=== PATIENT | male | born 1980 | race Hispanic/Latino ===

== ENCOUNTER 2022-06-21 22:48 | Emergency (ER) | payer OTHER ==
[2022-06-21] MEDS ORDERED: IBUPROFEN 400 MG TAB ONE (23:37)
[2022-06-22] MEDS ORDERED: NA CHLORIDE 0.9% 1,000 ML ONE (01:19)
[2022-06-22] MEDS ORDERED: ACETAMINOPHEN 500 MG TAB ONE (01:19)
[2022-06-22 01:24] LABS: Urine Mucus Slight /HPF (None Seen); Urine RBC >50 /HPF (None Seen)
[2022-06-22 02:25] LABS: Absolute Lymphocytes (CBC) 1.6 K/uL (0.7-4.9); Hematocrit 36.6 % (39.6-49.0); Lymphocytes % 9.2 % (15.3-44.8); MCV 85.9 fL (80-100); MPV 7.6 fL (7.6-11.3); RBC Red Blood Cell Count 4.26 M/uL (4.33-5.43)
[2022-06-22 02:34] LABS: Albumin 3.3 g/dL (3.4-5.0); Bilirubin Total 0.9 mg/dL (0.2-1.0); Potassium 3.5 mmol/L (3.5-5.1); Protein, Total 7.3 g/dL (6.4-8.2)
--- NOTE | 2022-06-22 02:41 | EDPHYS ---
Physician Documentation [facility] Name: Kenzie Montenegro Age: 42 yrs Sex: Male : 1980 Arrival Date: 06/21/2022 Time: 22:54 Bed 9 Private MD: ED Physician Caleb Field HPI: 06/21 23:45 This 42 yrs old Male presents to ER via Ambulatory with complaints of cp Weakness, Headache, Fever, Pain All Over, Urinary Problem. 23:45 The patient complains of pain to the top of head and forehead. The patient describes cp the headache as aching. Onset: The symptoms/episode began/occurred this morning. 23:45 Associated signs and symptoms: Pertinent positives: fever, weakness, generalized pain cp and body aches. Severity of symptoms: in the emergency department the pain is unchanged, despite home interventions. Historical: - Allergies: 23:06 No Known Allergies; hb - Immunization history:: Adult Immunizations up to date. - Social history:: Smoking status: Patient denies any tobacco usage or history of. ROS: 23:50 Constitutional: Positive for body aches, chills, fever, Negative for poor PO intake. cp 23:50 Eyes: Negative for injury, pain, redness, and discharge. cp 23:50 ENT: Positive for sore throat, Negative for drainage from ear(s), ear pain, difficulty swallowing, difficulty handling secretions. 23:50 Cardiovascular: Negative for chest pain. 23:50 Respiratory: Negative for cough, shortness of breath, wheezing. 23:50 Abdomen/GI: Negative for abdominal pain, vomiting, diarrhea, constipation. 23:50 Back: Positive for pain at rest, pain with movement, of the low back area. 23:50 Skin: Negative for rash. 23:50 Neuro: Positive for headache, weakness, Negative for altered mental status, dizziness. 23:50 All other systems are negative. Exam: 23:55 Head/Face: Normocephalic, atraumatic. cp 23:55 Constitutional: The patient appears in no acute distress, alert, awake, non-diaphoretic, non-toxic, well developed, well nourished. 23:55 Eyes: Periorbital structures: appear normal, Conjunctiva: normal, no exudate, no cp injection, Sclera: no appreciated abnormality, Lids and lashes: appear normal, bilaterally. 23:55 ENT: External ear(s): are unremarkable, Ear canal(s): are normal, clear, TM's: bulging, is not appreciated, bilaterally, dullness, bilaterally, erythema, is not appreciated, bilaterally, Nose: is normal, Mouth: Lips: moist, Oral mucosa: moist, Posterior pharynx: Airway: no evidence of obstruction, patent, erythema, is not appreciated, exudate, is not appreciated. 23:55 Neck: ROM/movement: is normal, is supple, without pain, no range of motions limitations, no meningismus, Lymph nodes: no appreciated lymphadenopathy. 23:55 Chest/axilla: Inspection: normal. 23:55 Cardiovascular: Rate: normal, Rhythm: regular, Edema: is not appreciated, JVD: is not appreciated. 23:55 Respiratory: the patient does not display signs of respiratory distress, Respirations: normal, no use of accessory muscles, no retractions, labored breathing, is not present, Breath sounds: are clear throughout, no decreased breath sounds, no stridor, no wheezing. 23:55 Abdomen/GI: Inspection: abdomen appears normal, Bowel sounds: active, all quadrants, Palpation: abdomen is soft and non-tender, in all quadrants. 23:55 Back: pain, that is very mild, of the low back area, ROM is normal, CVA tenderness, is absent. 23:55 Skin: cellulitis, is not appreciated, no rash present. 23:55 Neuro: Orientation: to person, place \\T\\ time. Mentation: is normal, Motor: moves all fours, strength is normal, Sensation: is normal. Vital Signs: 23:04 BP 130 / 75; Pulse 99; Resp 18; Temp 101.5(O); Pulse Ox 96% on R/A; Weight 127.01 kg; hb Height 5 ft. 9 in. (175.26 cm); Pain 8/10; 06/22 00:52 BP 108 / 58; Temp 101.5(O); ke1 02:17 Temp 99.1(O); ke1 06/21 23:04 Body Mass Index 41.35 (127.01 kg, 175.26 cm) hb MDM: 06/21 23:08 Patient medically screened. cp 06/22 02:40 Data reviewed: vital signs, nurses notes, lab test result(s). cp 02:40 Counseling: I had a detailed discussion with the patient and/or guardian regarding: the cp historical points, exam findings, and any diagnostic results supporting the discharge/admit diagnosis, lab results, the need for outpatient follow up, a family practitioner, to return to the emergency department if symptoms worsen or persist or if there are any questions or concerns that arise at home. Response to treatment: the patient's symptoms have markedly improved after treatment. ED course: VSS. Patient appears non-toxic and reports symptoms have improved with IV fluids and meds. Will discharge to home for continued monitoring. 06/21 23:27 Order name: Influenza Screen (a \\T\\ B); Complete Time: 00:54 cp 06/21 23:27 Order name: Strep; Complete Time: 00:54 06/21 23:27 Order name: COVID-19 SARS RT PCR (Document "Date of Onset" if Symptomatic); Complete cp Time: 00:54 06/21 23:57 Order name: Urine Microscopic Only; Complete Time: 01:58 cp 06/22 00:44 Order name: Throat Culture EDNV 06/22 00:46 Order name: CBC with Diff; Complete Time: 02:36 cp 06/22 02:37 Interpretation: Normal except: WBC 17.60; RBC 4.26; HGB 12.7; HCT 36.6; REYMUNDO% 83.3; LYM% cp 9.2; NEUT A 14.7. 06/22 00:46 Order name: CMP; Complete Time: 02:36 cp 06/22 02:37 Interpretation: NA 134; AST 13; CA 8.4; ALB 3.3; GLOB 4.0; Reviewed. 06/22 00:46 Order name: Lipase; Complete Time: 02:36 cp 06/22 01:27 Order name: Urine Culture EDNV 06/22 00:46 Order name: IV Saline Lock; Complete Time: 01:17 cp 06/22 00:46 Order name: Labs collected and sent; Complete Time: 01:39 cp Administered Medications: 06/21 23:44 Drug: Ibuprofen 800 mg Route: PO; ke1 06/22 01:15 Drug: Tylenol 1000 mg Route: PO; ke1 01:39 Drug: NS 0.9% 1000 ml Route: IV; Rate: 1 bolus; Site: right antecubital; ke1 02:48 CANCELLED (errorr): Albuterol 2.5 mg Inhalation once ke1 03:10 Drug: Rocephin - (cefTRIAXone) 2 grams Route: IVPB; Infused Over: 30 mins; Site: right ke1 forearm; 03:10 Drug: Cipro (ciprofloxacin) 500 mg Route: PO; ke1 Disposition Summary: 06/22/22 02:41 Discharge Ordered Location: Home cp Problem: new cp Symptoms: have improved cp Condition: Stable cp Diagnosis - UTI/ Urinary tract infection, site not specified cp Followup: cp - With: Emergency Department - When: As needed - Reason: Worsening of condition Discharge Instructions: - Discharge Summary Sheet cp - Urinary Tract Infection, Adult cp Forms: - Medication Reconciliation Form cp - Thank You Letter cp - Antibiotic Education cp - Prescription Opioid Use cp - Work release form ke1 Prescriptions: - Ibuprofen 800 mg Oral Tablet - take 1 tablet by ORAL route every 8 hours As needed take with food; 30 tablet; cp Refills: 0, Product Selection Permitted - Cipro 500 mg Oral Tablet - take 1 tablet by ORAL route every 12 hours for 10 days; 20 tablet; Refills: 0, cp Product Selection Permitted Signatures: Dispatcher [employer] EDMS Akash Keenan PA PA cp Becky Mcclain RN RN Oli Kebede RN RN ke1 Corrections: (The following items were deleted from the chart) 02:37 02:36 NA 134; Reviewed. cp cp 02:48 02:47 Albuterol 2.5 mg Inhalation once ordered. ke1 ke1
--- NOTE | 2022-06-22 02:41 | ER ---
Nurse's Notes [facility] Name: Kenzie Montenegro Age: 42 yrs Sex: Male : 1980 Arrival Date: 06/21/2022 Time: 22:54 Bed 9 Private MD: Diagnosis: UTI/ Urinary tract infection, site not specified Presentation: 06/21 23:04 Chief complaint: Generalized weakness, chills, headache, body aches, and fever since hb this morning. TMAX 102.7. Coronavirus screen: At this time, the client does not indicate any symptoms associated with coronavirus-19. Ebola Screen: No symptoms or risks identified at this time. Initial Sepsis Screen: Does the patient meet any 2 criteria? No. Patient's initial sepsis screen is negative. Does the patient have a suspected source of infection? No. Patient's initial sepsis screen is negative. Risk Assessment: Do you want to hurt yourself or someone else? Patient reports no desire to harm self or others. Onset of symptoms was June 21, 2022. 23:04 Method Of Arrival: Ambulatory hb 23:04 Acuity: GONZALO 4 hb Triage Assessment: 23:06 General: Appears in no apparent distress. ill, Behavior is calm, cooperative. Pain: hb Pain currently is 8 out of 10 on a pain scale. Neuro: Level of Consciousness is awake, alert, obeys commands, Oriented to person, place, time, situation. Cardiovascular: Patient's skin is warm and dry. Respiratory: Respiratory effort is even, unlabored, Respiratory pattern is regular, symmetrical. Historical: - Allergies: 23:06 No Known Allergies; hb - Immunization history:: Adult Immunizations up to date. - Social history:: Smoking status: Patient denies any tobacco usage or history of. Screenin:07 Abuse screen: Denies threats or abuse. Denies injuries from another. Nutritional hb screening: No deficits noted. Tuberculosis screening: No symptoms or risk factors identified. Fall Risk None identified. Assessment: 23:43 Pain: Complains of pain in General body Pain currently is 5 out of 10 on a pain scale. ke1 Neuro: Level of Consciousness is awake, alert, Oriented to person, place, time, situation. 06/22 03:19 Reassessment: Discharge delayed by Rocephin administration. ke1 Vital Signs: 06/21 23:04 BP 130 / 75; Pulse 99; Resp 18; Temp 101.5(O); Pulse Ox 96% on R/A; Weight 127.01 kg; hb Height 5 ft. 9 in. (175.26 cm); Pain 8/10; 06/22 00:52 BP 108 / 58; Temp 101.5(O); ke1 02:17 Temp 99.1(O); ke1 06/21 23:04 Body Mass Index 41.35 (127.01 kg, 175.26 cm) hb ED Course: 06/21 22:54 Patient arrived in ED. ja2 23:01 Akash Keenan PA is PHCP. cp 23:01 Caleb Field MD is Attending Physician. cp 23:06 Triage completed. hb 23:06 Arm band placed on. hb 23:07 Patient has correct armband on for positive identification. hb 23:34 Oli Kebede RN is Primary Nurse. ke1 23:38 Strep Sent. mm9 23:38 Influenza Screen (a \\T\\ B) Sent. mm9 23:38 COVID-19 SARS RT PCR (Document "Date of Onset" if Symptomatic) Sent. mm9 23:38 COVID swab sent to lab. Flu and/or RSV swab sent to lab. Strep swab sent to lab. mm9 06/22 00:55 Urine Microscopic Only Sent. mm9 01:17 Inserted saline lock: 20 gauge in right antecubital area, using aseptic technique. ke1 Administered Medications: 06/21 23:44 Drug: Ibuprofen 800 mg Route: PO; ke1 06/22 01:15 Drug: Tylenol 1000 mg Route: PO; ke1 01:39 Drug: NS 0.9% 1000 ml Route: IV; Rate: 1 bolus; Site: right antecubital; ke1 02:48 CANCELLED (errorr): Albuterol 2.5 mg Inhalation once ke1 03:10 Drug: Rocephin - (cefTRIAXone) 2 grams Route: IVPB; Infused Over: 30 mins; Site: right ke1 forearm; 03:10 Drug: Cipro (ciprofloxacin) 500 mg Route: PO; ke1 Outcome: 02:41 Discharge ordered by . cp 03:42 Patient left the ED. mm9 Signatures: Akash Keenan PA PA cp Baxter, Heather, RN Poonam Chavez Kouassi, RN RN ke1 Janey Garcia mm9 Corrections: (The following items were deleted from the chart) 00:57 00:52 Temp 101.5F Oral; ke1 ke1
[2022-06-22] MEDS ORDERED: CIPROFLOXACIN HCL 500 MG TAB ONE (02:56)
[2022-06-22] MEDS ORDERED: CEFTRIAXONE 2000 MG/VIAL ONE (02:56)
[2022-06-22] MEDS ORDERED: NA CHLORIDE 0.9% 100 ML IV ONE (02:57)
[2022-06-22 04:40] VITALS: O2SAT 96
[2022-06-22 04:41] VITALS: BP 108/58
[2022-06-22 04:42] VITALS: TEMP 99.1
== END 2022-06-22 03:42 | disposition home or self-care (01) ==
LOC: ER 22:48
DX: N39.0 Urinary tract infection, site not specified (principal); Z20.822 Contact with and (suspected) exposure to COVID-19
CPT/HCPCS: 87070; 87088; 85025; 87086; 36415; 87081; 81015; 83690; 80053; 87804 ×2; 96374; 99283; U0003; J7030; J0696

== ENCOUNTER 2022-06-23 08:56 | Emergency (ER) | payer OTHER ==
--- NOTE | 2022-06-23 09:48 | ER ---
Nurse's Notes [facility] Name: Kenzie Montenegro Age: 42 yrs Sex: Male : 1980 Arrival Date: 06/23/2022 Time: 09:00 Bed 11 Private MD: Diagnosis: Fever presenting with conditions classified elsewhere Presentation: 06/23 09:15 Chief complaint: Patient states: was here Wednesday was dx with urinary infection (CIPRO); 5 was given prescriptions and didn't get them filled until yesterday night and took antibiotics at 6:30 pm and then last night was having chills and getting hot so im back ... and i was released to go back Wednesday and the way im feeling, i cant go out there ....Pt has not taken any ibuprofen or tylenol this morning. Coronavirus screen: Vaccine status: Patient reports receiving the 2nd dose of the covid vaccine. Client denies travel out of the [place] in the last 14 days. Ebola Screen: Patient negative for fever greater than or equal to 101.5 degrees Fahrenheit, and additional compatible Ebola Virus Disease symptoms. Initial Sepsis Screen: Does the patient meet any 2 criteria? Yes Does the patient have a suspected source of infection? No. Patient's initial sepsis screen is negative. Risk Assessment: Do you want to hurt yourself or someone else? Patient reports no desire to harm self or others. Onset of symptoms was June 2022. 09:15 Method Of Arrival: Ambulatory [facility] 09:15 Acuity: GONZALO 3 [facility] Triage Assessment: 09:22 General: Appears in no apparent distress. comfortable, obese, Behavior is calm, [facility] cooperative, appropriate for age. Pain: Denies pain. Historical: - Allergies: 09:22 No Known Allergies; [facility] - Home Meds: :22 None [Active]; [facility] - Immunization history:: Adult Immunizations up to date. - Social history:: Smoking status: Patient denies any tobacco usage or history of. Vital Signs: 09:15 BP 133 / 77; Pulse 88; Resp 18; Temp 100.8; Pulse Ox 99% ; Weight 127.01 kg; Height 5 [facility] ft. 9 in. (175.26 cm); 09:15 Body Mass Index 41.35 (127.01 kg, 175.26 cm) [facility] ED Course: 09:00 Patient arrived in ED. am2 09:08 Sydney Logan [facility]-C [facility] snw 09:08 Colton Obrien MD is Attending Physician. snw 09:22 Triage completed. jh5 09:22 Arm band placed on right wrist. jh5 09:47 Anny Blake, RN is Primary Nurse. iw Administered Medications: 10:22 Drug: Motrin (ibuprofen) 600 mg Route: PO; iw 10:45 Follow up: Response: No adverse reaction iw 10:22 Drug: Tylenol 1000 mg Route: PO; iw 10:45 Follow up: Response: No adverse reaction iw 10:40 Drug: Flomax (tamsulosin) 0.4 mg Route: PO; iw 10:50 Follow up: Response: No adverse reaction iw Outcome: :47 Discharge ordered by . snw 10:41 Patient left the ED. iw Signatures: Sydney Logan FNP-C VETERINARY NURSE-Csnw Anny Blake, RN RN iw Mariely Vera 2 Poonam Machado, RN RN [facility]
--- NOTE | 2022-06-23 09:48 | EDPHYS ---
Physician Documentation [facility] Name: Kenzie Montenegro Age: 42 yrs Sex: Male : 1980 Arrival Date: 06/23/2022 Time: 09:00 Bed 11 Private MD: ED Physician Colton Obrien HPI: 06/23 09:46 This 42 yrs old Male presents to ER via Ambulatory with complaints of Fever, snw chills. 09:46 The patient reports fever, that was measured at 101 degrees Fahrenheit. Onset: The snw symptoms/episode began/occurred 3 day(s) ago, and became persistent. Modifying factors: dx with UTI, delayed getting abx filled. Severity of symptoms: At their worst the symptoms were moderate. It is unknown whether or not the patient has had similar symptoms in the past. The patient has been recently seen at the [facility] Department, this week, for similar complaints was given a prescription for antibiotics, was given a prescription for pain medications. Historical: - Allergies: :22 No Known Allergies; [facility] - Home Meds: :22 None [Active]; [facility] - Immunization history:: Adult Immunizations up to date. - Social history:: Smoking status: Patient denies any tobacco usage or history of. ROS: 09:45 Eyes: Negative for injury, pain, redness, and discharge, ENT: Negative for injury, snw pain, and discharge, Neck: Negative for injury, pain, and swelling, Cardiovascular: Negative for chest pain, palpitations, and edema, Respiratory: Negative for shortness of breath, cough, wheezing, and pleuritic chest pain, Abdomen/GI: Negative for abdominal pain, nausea, vomiting, diarrhea, and constipation, Back: Negative for injury and pain, : Negative for injury, bleeding, discharge, and swelling, MS/Extremity: Negative for injury and deformity, Skin: Negative for injury, rash, and discoloration, Neuro: Negative for headache, weakness, numbness, tingling, and seizure, Psych: Negative for depression, anxiety, suicide ideation, homicidal ideation, and hallucinations. 09:45 Constitutional: Positive for body aches, fever, malaise. Exam: 09:45 Constitutional: This is a well developed, well nourished patient who is awake, alert, snw and in no acute distress. Head/Face: Normocephalic, atraumatic. Eyes: Pupils equal round and reactive to light, extra-ocular motions intact. Lids and lashes normal. Conjunctiva and sclera are non-icteric and not injected. Cornea within normal limits. Periorbital areas with no swelling, redness, or edema. ENT: Nares patent. No nasal discharge, no septal abnormalities noted. Tympanic membranes are normal and external auditory canals are clear. Oropharynx with no redness, swelling, or masses, exudates, or evidence of obstruction, uvula midline. Mucous membranes moist. Neck: Trachea midline, no thyromegaly or masses palpated, and no cervical lymphadenopathy. Supple, full range of motion without nuchal rigidity, or vertebral point tenderness. No Meningismus. Chest/axilla: Normal chest wall appearance and motion. Nontender with no deformity. No lesions are appreciated. Cardiovascular: Regular rate and rhythm with a normal S1 and S2. No gallops, murmurs, or rubs. Normal PMI, no JVD. No pulse deficits. Respiratory: Lungs have equal breath sounds bilaterally, clear to auscultation and percussion. No rales, rhonchi or wheezes noted. No increased work of breathing, no retractions or nasal flaring. Abdomen/GI: Soft, non-tender, with normal bowel sounds. No distension or tympany. No guarding or rebound. No evidence of tenderness throughout. Back: No spinal tenderness. No costovertebral tenderness. Full range of motion. Skin: Warm, dry with normal turgor. Normal color with no rashes, no lesions, and no evidence of cellulitis. MS/ Extremity: Pulses equal, no cyanosis. Neurovascular intact. Full, normal range of motion. Neuro: Awake and alert, GCS 15, oriented to person, place, time, and situation. Cranial nerves II-XII grossly intact. Motor strength 5/5 in all extremities. Sensory grossly intact. Cerebellar exam normal. Normal gait. Psych: Awake, alert, with orientation to person, place and time. Behavior, mood, and affect are within normal limits. Vital Signs: 09:15 BP 133 / 77; Pulse 88; Resp 18; Temp 100.8; Pulse Ox 99% ; Weight 127.01 kg; Height 5 jh5 ft. 9 in. (175.26 cm); 09:15 Body Mass Index 41.35 (127.01 kg, 175.26 cm) 5 MDM: 09:09 Patient medically screened. snw 09:49 Data reviewed: vital signs, nurses notes, old medical records. Data interpreted: Pulse snw oximetry: on room air is 99 %. Interpretation: normal. Response to treatment: the patient's symptoms have mildly improved after treatment. Special discussion: Based on the history and exam findings, there is no indication for further emergent testing or inpatient evaluation. I discussed with the patient/guardian the need to see the primary care provider for further evaluation of the symptoms. Administered Medications: 10: Drug: Motrin (ibuprofen) 600 mg Route: PO; iw 10:45 Follow up: Response: No adverse reaction iw 10:22 Drug: Tylenol 1000 mg Route: PO; iw 10:45 Follow up: Response: No adverse reaction iw 10:40 Drug: Flomax (tamsulosin) 0.4 mg Route: PO; iw 10:50 Follow up: Response: No adverse reaction iw Disposition: 17:29 Co-signature as Attending Physician, Colton Obrien MD. rn Disposition Summary: 06/23/22 09:47 Discharge Ordered Location: Home snw Condition: Stable snw Diagnosis - Fever presenting with conditions classified elsewhere snw Followup: snw - With: Emergency Department - When: As needed - Reason: Worsening of condition Followup: snw - With: Private Physician - When: 2 - 3 days - Reason: Recheck today's complaints, Continuance of care, Re-evaluation by your physician Discharge Instructions: - Discharge Summary Sheet snw - Fever, Adult snw - Urinary Tract Infection, Adult, [id number] snw Forms: - Medication Reconciliation Form snw - Work release form snw - Thank You Letter snw - Antibiotic Education snw - Prescription Opioid Use snw Prescriptions: - Flomax 0.4 mg Oral capsule - take 1 capsule by ORAL route once daily 1/2 hour following the same meal each snw day; 10 capsule; Refills: 0, Product Selection Permitted Signatures: Sydney Logan FNP-C ASSISTANT COMMUNITY MANAGER-Csnw Anny Blake, RN ELLIOT iw Colton Obrien MD MD rn Rees, Jessica, RN RN jh5
[2022-06-23] MEDS ORDERED: IBUPROFEN 200 MG TAB PO ONE (10:17)
[2022-06-23] MEDS ORDERED: ACETAMINOPHEN 500 MG TAB ONE (10:17)
[2022-06-23] MEDS ORDERED: TAMSULOSIN 0.4 MG SR CAP ONE (10:32)
[2022-06-23 11:12] VITALS: BP 133/77; TEMP 100.8; O2SAT 99
== END 2022-06-23 10:41 | disposition home or self-care (01) ==
LOC: ER 08:56
DX: R50.9 Fever, unspecified (principal)
CPT/HCPCS: 99282

== ENCOUNTER 2022-06-26 20:59 | Emergency (ER) | payer OTHER ==
[2022-06-26 22:56] LABS: Urine Blood 3+ (Negative); Urine Glucose Negative (Negative); Urine Protein 1+ (Negative); Urine Specific Gravity >=1.030 (1.005-1.030); Urine pH 5.5 (5.0-7.0)
--- NOTE | 2022-06-26 23:18 | RAD REPORT ---
[facility] DES[facility] - 06/26/2022 11:02 pm CLINICAL HISTORY: low back pain, right testicle pain COMPARISON: No comparisons TECHNIQUE: CT of the abdomen and pelvis was performed. All CT scans are performed using dose optimization technique as appropriate and may include automated exposure control or mA/KV adjustment according to patient size. FINDINGS: Lower chest: No acute abnormality. Liver: Hepatic steatosis. Biliary: Cholecystectomy. Stomach: No significant focal abnormality. Duodenum: No significant focal abnormality. Pancreas: No significant abnormality. Spleen: No significant abnormality. Adrenal: No suspicious lesions. Kidney/ureter: No hydronephrosis. No renal calculi. Retroperitoneum: No retroperitoneal adenopathy. Vascular: No aneurysm. Bowel: No significant focal abnormality. Diverticulosis without diverticulitis. Normal appendix. Peritoneum: No ascites or free air. Bladder: Mild circumferential bladder wall thickening. Reproductive: No adnexal masses. Bones: No acute fracture. Other: n/a IMPRESSION: No acute intra-abdominal or pelvic finding. No urinary tract calculi. Normal appendix.
[2022-06-27] MEDS ORDERED: KETOROLAC 30 MG/ML INJ ONE (00:44)
--- NOTE | 2022-06-27 01:06 | EDPHYS ---
Physician Documentation [facility] Name: Kenzie Montenegro Age: 42 yrs Sex: Male : 1980 Arrival Date: 06/26/2022 Time: 21:01 Bed 20 Private MD: ED Physician Akash Birch HPI: 06/26 22:35 This 42 yrs old Male presents to ER via Ambulatory with complaints of Groin cp Pain. 22:35 The patient presents with swelling, of the right testicle, tenderness, that is cp moderate, of the right testicle, urinary symptoms, hematuria. 22:35 Onset: The symptoms/episode began/occurred 3 day(s) ago. Associated signs and symptoms: cp Pertinent positives: low back pain, Pertinent negatives: abdominal pain, constipation, diarrhea, fever, vomiting. Severity of symptoms: in the emergency department the symptoms are unchanged, despite home interventions. Patient currently taking prescribed Ciprofloxacin for uti after being seen here on 06-21-2022 for fever, body aches. Historical: - Allergies: 21:12 No Known Allergies; hb - Immunization history:: Adult Immunizations up to date. - Social history:: Smoking status: Patient denies any tobacco usage or history of. ROS: 22:40 Constitutional: Negative for body aches, chills, fever, poor PO intake. cp 22:40 Eyes: Negative for injury, pain, redness, and discharge. cp 22:40 ENT: Negative for drainage from ear(s), ear pain, sore throat, difficulty swallowing, difficulty handling secretions. 22:40 Cardiovascular: Negative for chest pain, edema, palpitations. 22:40 Respiratory: Negative for cough, shortness of breath, wheezing. 22:40 Abdomen/GI: Negative for abdominal pain, nausea, vomiting, and diarrhea. 22:40 Back: Positive for of the low back area, pain. 22:40 : Positive for hematuria, testicular pain of the right testicle, testicular swelling. 22:40 Skin: Negative for rash. 22:40 All other systems are negative. Exam: 22:45 Constitutional: The patient appears in no acute distress, alert, awake, non-toxic, well cp developed, well nourished. 22:45 Head/Face: Normocephalic, atraumatic. cp 22:45 Eyes: Periorbital structures: appear normal, Conjunctiva: normal, no exudate, no injection, Sclera: no appreciated abnormality, Lids and lashes: appear normal, bilaterally. 22:45 ENT: External ear(s): are unremarkable, Nose: is normal, Mouth: Lips: moist, Oral mucosa: moist, Posterior pharynx: Airway: no evidence of obstruction, patent. 22:45 Chest/axilla: Inspection: normal. 22:45 Cardiovascular: Rate: normal. 22:45 Respiratory: the patient does not display signs of respiratory distress, Respirations: normal, no use of accessory muscles, no retractions, labored breathing, is not present, Breath sounds: are clear throughout, no decreased breath sounds. 22:45 Abdomen/GI: Inspection: obese Bowel sounds: active, all quadrants, Palpation: abdomen is soft and non-tender, in all quadrants. 22:45 Back: pain, that is very mild, of the low back area, ROM is normal, CVA tenderness, is absent. 22:45 : Male external genitalia: swelling, of the right testicle is noted, of the epididymis area, that is moderate, tenderness, of the right testicle is noted, of the epididymis area, that is moderate. 22:45 Skin: cellulitis, is not appreciated, no rash present. Vital Signs: 21:09 BP 154 / 89; Pulse 60; Resp 18; Temp 97.1; Pulse Ox 100% on R/A; Pain 6/10; hb 06/27 00:33 BP 138 / 93; Pulse 59; Resp 19 S; Pulse Ox 100% on R/A; ha1 MDM: 06/26 21:13 Patient medically screened. aye 06/27 00:00 Differential diagnosis: appendicitis, UTI, urinary retention, prostatitis, urethritis, cp epididymitis, orchitis. 01:05 Data reviewed: vital signs, nurses notes, lab test result(s), radiologic studies, CT cp scan, ultrasound. 01:05 Counseling: I had a detailed discussion with the patient and/or guardian regarding: the cp historical points, exam findings, and any diagnostic results supporting the discharge/admit diagnosis, lab results, radiology results, the need for outpatient follow up, a urologist, to return to the emergency department if symptoms worsen or persist or if there are any questions or concerns that arise at home. 01:05 Response to treatment: the patient's symptoms have mildly improved after treatment, and cp as a result, I will discharge patient. 06/26 22:56 Order name: Urine Dipstick-Ancillary; Complete Time: 00:22 EDVT 06/27 00:22 Interpretation: Normal except: UBLD 3+; UPROT 1+. cp 06/26 22:32 Order name: US Scrotum Testicles cp 06/26 22:32 Order name: Urine Dipstick-Ancillary (obtain specimen); Complete Time: 23:23 cp 06/26 22:35 Order name: CT Stone Protocol; Complete Time: 00:22 cp Administered Medications: 01:01 Drug: Ketorolac 30 mg Route: IVP; Site: right antecubital; ha1 01:23 Follow up: Response: No adverse reaction ha1 Disposition Summary: 06/27/22 01:05 Discharge Ordered Location: Home cp Problem: an ongoing problem cp Symptoms: have improved cp Condition: Stable cp Diagnosis - Epididymitis cp Followup: cp - With: Christian Roman MD - When: 2 - 3 days - Reason: Recheck today's complaints Discharge Instructions: - Discharge Summary Sheet cp - Epididymitis cp - Testicular Self-Exam cp Forms: - Medication Reconciliation Form cp - Thank You Letter cp - Antibiotic Education cp - Prescription Opioid Use cp Prescriptions: - Diclofenac Sodium 75 mg Oral Tablet Sustained Release - take 1 tablet by ORAL route 2 times per day; 30 tablet; Refills: 0, Product cp Selection Permitted Addendum: 07/02/2022 09:53 Co-signature as Attending Physician, Akash Birch MD I agree with the assessment and [facility] plan of care. Signatures: Dispatcher [employer] [facility] Akash Birch MD MD cha Page, Corey, PA PA cp Becky Mcclain RN RN Katharina Guevara RN RN ha1 Corrections: (The following items were deleted from the chart) 06/28 01:13 06/26 22:35 Patient currently taking prescribed Ciprofloxacin for uti. cp cp
--- NOTE | 2022-06-27 01:06 | ER ---
Nurse's Notes [facility] Name: Kenzie Montenegro Age: 42 yrs Sex: Male : 1980 Arrival Date: 06/26/2022 Time: 21:01 Bed 20 Private MD: Diagnosis: Epididymitis Presentation: 06/26 21:09 Chief complaint: Chief complaint: Right testicular pain and blood in urine x 3 days. On Cipro for UTI. Coronavirus screen: At this time, the client does not indicate any symptoms associated with coronavirus-19. Ebola Screen: No symptoms or risks identified at this time. Initial Sepsis Screen: Does the patient meet any 2 criteria? No. Patient's initial sepsis screen is negative. Does the patient have a suspected source of infection? No. Patient's initial sepsis screen is negative. Risk Assessment: Do you want to hurt yourself or someone else? Patient reports no desire to harm self or others. Onset of symptoms was June 26, 2022. 21:09 Acuity: GONZALO 3 21:09 Method Of Arrival: Ambulatory Triage Assessment: 06/27 01:23 General: Appears. ha1 Historical: - Allergies: 06/26 21:12 No Known Allergies; hb - Immunization history:: Adult Immunizations up to date. - Social history:: Smoking status: Patient denies any tobacco usage or history of. Screenin/12 00:35 Abuse screen: Denies threats or abuse. Denies injuries from another. Nutritional ha1 screening: No deficits noted. Tuberculosis screening: No symptoms or risk factors identified. Fall Risk None identified. Assessment: 00:33 Pain: Denies pain. Neuro: Level of Consciousness is awake, alert, obeys commands, ha1 Oriented to person, place, time, situation. Cardiovascular: Patient's skin is warm and dry. Respiratory: Airway is patent Trachea midline Respiratory effort is even, unlabored, Respiratory pattern is regular, symmetrical. GI: No signs and/or symptoms were reported involving the gastrointestinal system. Abdomen is non-distended, obese. : Reports blood in urine. EENT: No deficits noted. No signs and/or symptoms were reported regarding the EENT system. Derm: Skin is pink, warm \T\ dry. Musculoskeletal: Circulation, motion, and sensation intact. Range of motion: intact in all extremities. 01:02 Reassessment: Patient and/or family updated on plan of care and expected duration. Pain ha1 level reassessed. Patient is alert, oriented x 3, equal unlabored respirations, skin warm/dry/pink. Vital Signs: 06/26 21:09 BP 154 / 89; Pulse 60; Resp 18; Temp 97.1; Pulse Ox 100% on R/A; Pain 6/10; hb 11 00:33 BP 138 / 93; Pulse 59; Resp 19 S; Pulse Ox 100% on R/A; ha1 ED Course: 06/26 21:01 Patient arrived in ED. bp1 21:09 Akash Keenan PA is PHCP. cp 21:09 Akash Birch MD is Attending Physician. cp 21:11 Triage completed. hb 21:12 Arm band placed on. hb 23:04 CT Stone Protocol In Process Unspecified. EDMS 23:24 Urine collected: clean catch specimen, cloudy. mm9 06/27 00:33 Katharina Guevara, RN is Primary Nurse. ha1 00:33 No provider procedures requiring assistance completed. Inserted saline lock: 20 gauge ha1 in right antecubital area, using aseptic technique. 00:35 Patient has correct armband on for positive identification. Placed in gown. Bed in low ha1 position. Call light in reach. Side rails up X 1. 01:00 US Scrotum Testicles In Process Unspecified. EDMS 01:04 Christian Roman MD is Referral Physician. cp 01:25 IV discontinued, intact, bleeding controlled, No redness/swelling at site. Pressure ha1 dressing applied. Administered Medications: 01:01 Drug: Ketorolac 30 mg Route: IVP; Site: right antecubital; ha1 01:23 Follow up: Response: No adverse reaction ha1 Medication: 01:24 VIS not applicable for this client. ha1 Outcome: 01:05 Discharge ordered by . cp 01:24 Discharged to home ambulatory. ha1 01:24 Condition: stable 01:24 Discharge instructions given to patient, Instructed on discharge instructions, follow up and referral plans. medication usage, Demonstrated understanding of instructions, follow-up care, medications. 01:25 Patient left the ED. ha1 Signatures: Dispatcher [employer] [facility] Akash Keenan PA PA cp Baxter, Heather, RN RN Maxine Cordova Heidy, ELLIOT RN ha1 Jose, Janey mm9
[2022-06-27 02:50] VITALS: TEMP 97.1; O2SAT 100
[2022-06-27 02:55] VITALS: BP 138/93
--- NOTE | 2022-06-29 12:23 | RAD REPORT ---
EXAM DESCRIPTION: US - Scrotum Testicles - 06/27/2022 12:58 am CLINICAL HISTORY 42 years, Male, right testicle pain COMPARISON: None. FINDINGS: Multiple grayscale images of the testicles were performed. Color Doppler imaging was used to assess vascular flow. The right testicle measures 5.4 x 3.1 x 3.5 cm, the right epididymis measured 0.6 x 1 cm. There is a epididymal head cyst measuring 0.4 x 0.4 cm. There is small amount of the hydrocele. There is a epidi dymal tail demonstrate heterogeneous appearance with focal area of hypoechoic highly suggestive of ri ght epididymitis of the tail. There is a right varicocele. The left testicle measured 5.6 x 3.1 x 3.5 cm, the left epididymis measured 0.8 x 1.2 cm. There is a epididymal head cyst measuring 0.6 x 0.7 and 0.2 x 0.2 cm. There is a small left hydrocele. There is normal vascular flow within the left testicle. Questionable tiny focus of the echogenicity/calcific ation corresponding to microlithiasis. There is no hypoechoic lesion in either testicle. IMPRESSION: No sonographic evidence of testicular torsion. Findings suggest right epididymitis. Right varicocele. Small bilateral hydroceles. Bilateral epididymal head cysts. 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 Electronically signed by: Damon Chen MD 06/27/2022 1:24 AM GENERAL ASSEMBLER Due to temporary technical issues with the PACS/Fluency reporting system, reports are being signed by the in house radiologists without review as a courtesy to insure prompt reporting. The interpreting radiologist is fully responsible for the content of the report.
== END 2022-06-27 01:25 | disposition home or self-care (01) ==
LOC: ER 20:59
DX: N45.1 Epididymitis (principal)
CPT/HCPCS: 74176; 76377; 76870; 81003; 96374; 99284